=== PATIENT | male | born 1930 | race Caucasian/White ===

== ENCOUNTER 2018-11-30 20:35 | Inpatient (IN) | payer MEDICARE ==
[2018-11-30 22:31] LABS: CKMB 1.2 ng/mL (0-6.6)
[2018-11-30 22:44] VITALS: BMI 26.1
[2018-12-01] MEDS ORDERED: Nitroglycerin 0.4 MG TAB (25 Tab Bottle) PO PRN (07:51)
[2018-12-01] MEDS ORDERED: Magnesium 2 GM/50 ML 2 GM in Premix Bag 1 BAG IVPB SCH (08:15)
[2018-12-01 08:47] LABS: CKMB 1.1 ng/mL (0-6.6)
[2018-12-01 08:53] LABS: Cardiac Risk 2.2 (Less than 4.5)
[2018-12-01] MEDS ORDERED: Aspirin Chewable 81 MG TAB PO SCH (09:00)
[2018-12-01] MEDS ORDERED: Sodium Chloride 0.9% 1,000 ML IV SCH (11:15)
[2018-12-01] MEDS ORDERED: Communication Order-Pharmacy FS SCH (11:15)
--- NOTE | 2018-12-01 11:52 | CON ---
DATE OF CONSULTATION: 12/01/2018 REASON FOR CONSULTATION: Chest pain, indeterminate troponin, episode of nonsustained ventricular tachycardia. HISTORY OF PRESENT ILLNESS: Mr. Packer is a very pleasant 88-year-old gentleman. He had an episode of substernal pain yesterday. He initially thought it was indigestion, took medicine for indigestion, but did not resolve. Therefore, he went to the emergency room. He was found to have frequent PVCs, one episode of nonsustained ventricular tachycardia. He was transferred here. He has not had any further chest pain. He said about a month or two ago he had a similar episode of pain, but was not as severe. The patient remains moderately active. He is currently living on his family members land in [place], moderately active without angina. PAST MEDICAL HISTORY: He has a history of coronary artery disease and underwent stent implantation in the right coronary artery in 1998. The patient at that time had a 3.5 mm x 25 mm near ELLEN stent placed deployed to 12 atmospheres and post dilated to 15 atmospheres. He also had some distal disease in the right coronary artery and a 60% lesion after the posterior descending artery. The LAD, left main, and circumflex were free of any obstructive stenosis. At the base of the inferior wall, it was akinetic. The ejection fraction was 65%. MEDICATIONS: 1. He takes aspirin. 2. He is not taking any statin. He says he does not remember being on statins. 3. Previously, he is on blood pressure medicine, but "it maybe goofy, so I quit a couple weeks ago,". ALLERGIES: NONE KNOWN. MEDICATION IS OUTLINED ABOVE. REPORTS ASPIRIN AND OMEPRAZOLE. REVIEW OF SYSTEMS: CONSTITUTIONAL: No significant weight gain or loss. VISION: No changes. HEARING: No changes. PULMONARY: No cough or wheezing. GASTROINTESTINAL: No nausea, vomiting, or diarrhea. SKIN: No rashes. NEUROLOGIC: No unilateral weakness or numbness. PSYCHIATRIC: No unusual depression or anxiety. HEMATOLOGIC: No unusual bruising. GENITOURINARY: No burning with urination. PHYSICAL EXAMINATION: GENERAL: This is a pleasant gentleman, in no distress. VITAL SIGNS: Blood pressure 149/91 and pulse 74 and regular. LUNGS: Clear. CARDIAC: Normal S1 and normal S2. ABDOMEN: Soft and nontender. EXTREMITIES: No clubbing or cyanosis. No edema. He has good dorsalis pedis pulses bilaterally. SKIN: Warm and dry. PSYCHIATRIC: Mood and affect normal. NEUROLOGIC: Grossly normal. LABORATORY DATA: EKG, no acute changes, but he did have one episode of nonsustained ventricular tachycardia. Troponin level 0.054 indeterminate. LDL cholesterol 63. The patient does chew tobacco. ASSESSMENT: 1. Acute coronary syndrome. 2. Previous stent implantation 20 years ago. 3. Chews tobacco. 4. Hypertension. 5. Nonsustained ventricular tachycardia, 24 beats. PLAN: 1. Aspirin. 2. Proceed to repeat cardiac catheterization. Discussed risk of stroke, heart attack, iodine allergy, loss of blood supply to leg or kidney, stent thrombosis, and stent restenosis. The patient understands and wished to proceed. He may have the extensive disease now 20 years out from his previous intervention. Job ID: [id number]
[2018-12-01] MEDS ORDERED: Lidocaine 1% (PF) 30 ML VIAL ONE (15:17)
[2018-12-01] MEDS ORDERED: Fentanyl 100 MCG/2 ML VIAL ONE (15:38)
[2018-12-01] MEDS ORDERED: Midazolam HCl 2 mg/2 ml Vial ONE (15:39)
[2018-12-01] MEDS ORDERED: Nitroglycerin 100MG/250ML BOT 250 ML ONE (15:58)
[2018-12-01] MEDS ORDERED: Sodium Chloride 0.9% 200 ML IV PRN (16:40)
[2018-12-01] MEDS ORDERED: Nitroglycerin 0.4 MG TAB (25 Tab Bottle) SL PRN (16:40)
[2018-12-01] MEDS ORDERED: Acetaminophen/Codeine 30-300mg Tablet PO PRN (16:40)
--- NOTE | 2018-12-01 17:06 | HP ---
TIME OF EVALUATION: 7:30 a.m. CHIEF COMPLAINT: Chest pain. HISTORY OF PRESENT ILLNESS: Mr. Packer is an 88-year-old male with past medical history significant for coronary artery disease, status post remote stenting of the RCA many years ago with Dr. Tello, with no followup since; hypertension; and Snus tobacco abuse, who presented to the [facility] ER in [place] with complaints of chest discomfort. The patient states that prior to his episode of chest pain, he was eating a piece of fried chicken, and shortly thereafter, began experiencing some discomfort that he described as "indigestion like." He denied any associated nausea, diaphoresis, or palpitations. He did take several [id number] Tagamet, along with an extra Prilosec, and had no relief of his symptoms. He did take a sublingual nitroglycerin, which did start to ease off his pain. On arrival to the ER in [place], he was given a second sublingual nitroglycerin, which did relieve his pain. Workup at that facility included an EKG, which showed no acute ST or T-wave changes, but did show frequent PVCs. At that facility, he did have a short run of nonsustained ventricular tachycardia. His troponin was indeterminate. He was transferred to our facility for higher level of care, and evaluation by Dr. Tello, who is the patient's primary die tester when the stent was placed, however, he has not had any followup or stress test since that time as mentioned. Since his arrival, he has had no further chest discomfort. He has been resting comfortably. He has no complaints at this time. REVIEW OF SYSTEMS: A 12-point review of systems performed and is negative except that stated above. The patient states specifically that he has had no recent illnesses, cough, fever, or chills. He has had no blood in his urine or stool. 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 ALLERGIES: NO KNOWN DRUG ALLERGIES. HOME MEDICATIONS: At this point, the patient is only taking, 1. Baby aspirin 81 mg daily. 2. Prilosec 10 mg daily. Review of records from [place] and the patient's primary PCP, Dr. Roy, does show that the patient was previously on, 1. Amlodipine 5 mg daily. 2. Finasteride 5 mg daily. 3. Ibuprofen 200 mg p.r.n. 4. Tamsulosin 0.4 mg daily. 5. Tramadol 50 mg p.r.n. 6. Trazodone 50 mg q.h.s. PAST MEDICAL HISTORY: Coronary artery disease, hypertension, BPH. PAST SURGICAL HISTORY: Includes stent placement to the RCA by Dr. Tello, and appendectomy. SOCIAL HISTORY: The patient has used dip tobacco for many years. He does not smoke cigarettes. No illicit drug use. Drinks alcohol occasionally. He lives on some land near his daughter and many grandchildren. He does stay active on the land and is very functional and performs all of his own ADLs. CODE STATUS: The patient is a full code. PHYSICAL EXAMINATION: VITAL SIGNS: Blood pressure 141/91, pulse 74, O2 saturation is 98% on room air, temperature 97.4. GENERAL: The patient is a well-appearing elderly male, in no acute distress. HEENT: Head is atraumatic and normocephalic. Mucous membranes are moist. NECK: Supple. No lymphadenopathy. Trachea is midline. No JVD. CV: S1 and S2. Regular rate and rhythm. No appreciable murmurs, rubs, or gallops. LUNGS: Regular respiratory rate and pattern. Overall clear to auscultation bilaterally. ABDOMEN: Soft. Positive bowel sounds. Nontender. No masses. EXTREMITIES: No edema. Lower extremities are warm and well perfused. SKIN: Warm and dry. No rashes or lesions present. NEUROLOGIC: Alert and oriented x3. Nonfocal. Cranial nerves 2 through 12 grossly intact. LABORATORY DATA: Reviewed from [facility]. Creatinine 0.94, BUN 11, sodium 139, potassium 4.0, calcium 9.5, CO2 of 23. Troponin 0.02, 0.054 respectively. Magnesium 1.5. Hemoglobin and hematocrit of 15/44.6, platelets are 254. ASSESSMENT: 1. Unstable angina. 2. Nonsustained ventricular tachycardia, concerning for ischemic-mediated in the setting of chest pain, known disease, and indeterminate troponin. 3. Coronary artery disease, status post remote stenting of the right coronary artery, approximately 15 to 20 years ago. 4. Hypertension. 5. Mild hypomagnesemia. 6. Tobacco abuse/chewing tobacco. PLAN: Dr. Tello of Cardiology has been consulted and plan is for left heart catheterization later today. We will replete the patient's magnesium. The patient did receive heparin at the [facility] ER, we will continue aspirin. The patient has not been on statin. We will await findings of left heart catheterization. Appreciate Cardiology consult and recommendations. Further recommendations based on hospital course. Job ID: [id number]
[2018-12-01] MEDS: Amlodipine 5 MG TAB PO SCH (17:40)
[2018-12-01] MEDS ORDERED: Amlodipine 5 MG TAB PO SCH (17:45)
[2018-12-01] MEDS ORDERED: Iopamidol 370 76% 100 ML VIAL ONE (20:13)
[2018-12-01] MEDS ORDERED: Atorvastatin Calcium 20 MG TAB PO SCH (21:00)
--- NOTE | 2018-12-02 00:46 | CON ---
DATE OF CONSULTATION: HISTORY OF PRESENT ILLNESS: Adam Packer is an 88-year-old gentleman with remote history of right coronary artery stenting [place] [address] Tello. He has not had any medical followup to speak of over the years, but presented with chest pain this morning. He had a slight bump in his troponin I and cardiac catheterization demonstrated serial severe right coronary artery lesions as well as a 70% stenosis in OM and a fairly normal-appearing LAD diagonal system. He had some inferior akinesis, but overall the ejection fraction was not too bad. PAST MEDICAL HISTORY: Positive for hypertension, however, he stopped taking his medicines. He does take an aspirin a day. Other medications, he does not take regularly. Past medical history includes some prostatic hypertrophy. PAST SURGICAL HISTORY: Negative, although the chart said he had an appendectomy. The patient actually states he has never had surgery. SOCIAL HISTORY: He does not smoke, but does dip. He lives in an next door to his daughter and remains fairly active and drinks beer on a daily basis. REVIEW OF SYSTEMS: He denies nocturia, constipation, or diarrhea. He has had no previous stroke. He denies dyspnea. PHYSICAL EXAMINATION: GENERAL: He is alert, cooperative gentleman, appearing his stated age. VITAL SIGNS: Height 5 feet 9 inches, weight 176 pounds. Blood pressure is , heart rate 68. NECK: Limited range of motion of his neck. No carotid bruits. LUNGS: Clear to auscultation. CARDIAC: Bradycardia. No murmurs. ABDOMEN: Soft and nontender. No aneurysm. EXTREMITIES: Palpable femoral and posterior tibial pulses bilaterally. I have gone over the possibility of coronary artery bypass grafting to the right acute marginal/PDA and distal right coronary artery as well as an OM. At this time, the patient is not interested in any intervention and we have discussed medical management, and his daughter is hesitant to allow him to take statins because she knows someone who had some muscle weakness from statins. In any event, I will stop by tomorrow and see if he has had any further questions or change of attitude concerning surgery. Job ID: [id number]
[2018-12-02] MEDS: Amlodipine 5 MG TAB PO SCH (08:15)
[2018-12-02] MEDS ORDERED: Aspirin 81 mg Enteric Coated Tablet PO SCH (09:00)
[2018-12-02] MEDS ORDERED: Carvedilol 3.125 MG TAB PO SCH ×2 (09:30→17:00)
--- NOTE | 2018-12-02 11:31 | PDOC.PN ---
- Subjective Encounter Start Date: 12/02/18 Encounter Start Time: 11:29 Mr Packer was seen today in follow-up of Unstable angina, and non-sustained VT. He does no have any complaints this morning. He has thought about Bypass surgery overnight, and does not want this. - Objective Resuscitation Status - Order Detail: 12/01/18 07:51 Resuscitation Status Routine Co-Sign Provider: Resuscitation Status: FULL: Full Resuscitation Discussed with: patient MAR Reviewed: Yes Vital Signs & Weight: Vital Signs (12 hours) Temp Pulse Resp BP Pulse Ox 12/02/18 08:00 97.6 F 72 16 187/84 H 96 12/02/18 03:15 98.4 F 62 18 178/80 H 95 Weight Weight 176 lb 12.8 oz I&O: 12/01/18 12/02/18 12/03/18 06:59 06:59 06:59 Intake Total 300 840 Output Total 450 Balance 300 390 Phys Exam - Physical Examination HEENT: PERRLA Respiratory: no wheezing, no rales, no rhonchi, clear to auscultation bilateral Cardiovascular: RRR, no significant murmur, no rub Gastrointestinal: soft, non-tender, no distention, positive bowel sounds Musculoskeletal: no edema, pulses present Dx/Plan (1) Unstable angina Status: Acute (2) Dyslipidemia Code(s): E78.5 - HYPERLIPIDEMIA, UNSPECIFIED Status: Chronic (3) Coronary artery disease Code(s): I25.10 - ATHSCL HEART DISEASE OF [place] CORONARY ARTERY W/O ANG PCTRS Status: Chronic (4) Hypertension Code(s): I10 - ESSENTIAL (PRIMARY) HYPERTENSION Status: Chronic - Plan * Unstable Angina- clinically stable- his symptoms have improved * He has declined CABG * He will be treated medically, and he is stable for discharge home.
[2018-12-02 12:32] VITALS: BP 141/69; TEMP 98.2
--- NOTE | 2018-12-02 15:14 | EKG ---
Test Reason : Blood Pressure : / mmHG Vent. Rate : 089 BPM Atrial Rate : 089 BPM P-R Int : 182 ms QRS Dur : 094 ms QT Int : 364 ms P-R-T Axes : 054 -13 011 degrees QTc Int : 442 ms Sinus rhythm with Premature supraventricular complexes Inferior infarct , age undetermined Possible Anterior infarct , age undetermined Abnormal ECG Confirmed by MONE PEARSON ([id number]), restaurant expeditor DONNY GARCIA ([id number]) on 12/02/2018 3:14:04 PM Referred By: Confirmed By:MONE PEARSON
--- NOTE | 2018-12-02 18:32 | PDOC.CTH ---
Cardiology Progress Note - Subjective The pt seen and examined. No overnight events. No cardiac complaints. - Objective Vital Signs Temp Pulse Resp BP Pulse Ox 12/02/18 12:00 98.2 F 70 12 141/69 H 95 12/02/18 08:00 97.6 F 72 16 187/84 H 96 Weight 176 lb 12.8 oz 12/01/18 12/02/18 12/03/18 06:59 06:59 06:59 Intake Total 300 840 240 Output Total 450 Balance 300 390 240 - Physical Examination General/Neuro: alert & oriented x3 Neck: no JVD present Lungs: CTA Heart: RRR Abdomen: soft Extremities: other: (No edema) - Telemetry Telemetry Rhythm: SR - Labs Troponin/CKMB CK-MB (CK-2) 1.1 ng/mL (0-6.6) 12/01/18 07:50 Troponin I 0.045 ng/mL (< 0.028) H 12/01/18 07:50 - Assessment/Plan 1. Unstable angina - s/p LHC with 70% stenosis in OM with inferior akinesis; the pt refused to undergo CABG and willing to cont medical management; the pt's daughter refused statin 2. CAD with hx of stent in RCA in 1998 - 3. HTN - 4. S/p 15 beats of SVT - asymptomatic; will start Coreg 3.125mg BID; Discussed with the pt and family about SVT and the benefit and side effect of BBlocker. MAR reviewed * The pt will f/u with Dr Tello's office within 2 wks. Review of Systems - Review of Systems Constitutional: reports: no symptoms reported EENTM: reports: no symptoms reported Respiratory: reports: no symptoms reported Cardiac (ROS): reports: no symptoms reported ABD/GI: reports: no symptoms reported : reports: no symptoms reported Musculoskeletal: reports: no symptoms reported
--- NOTE | 2018-12-02 20:24 | DIS ---
DATE OF ADMISSION: 12/01/2018 DATE OF DISCHARGE: 12/02/2018 PRIMARY CARE PHYSICIAN: Dr. Nayak. DISCHARGE DISPOSITION: Home. PRIMARY DISCHARGE DIAGNOSES: 1. Unstable angina. 2. Coronary artery disease. 3. Hypertension. 4. Dyslipidemia. DISCHARGE MEDICATIONS: 1. Carvedilol 3.125 mg twice daily. 2. Lipitor 20 mg at bedtime. 3. Norvasc 5 mg daily. 4. Omeprazole 10 mg daily. 5. Aspirin 81 mg daily. PROCEDURES DONE DURING THE ADMISSION: The patient had a cardiac catheterization and this revealed severe right coronary artery lesion as well as a 70% stenosis in OM and there was some inferior akinesis. HOSPITAL COURSE: Mr. Packer is a pleasant 88-year-old gentleman, who presented to the emergency room with complaints of chest pain. He went to the emergency room in [place] and then was transferred to our hospital. There were concerns due to some frequent PVCs and some nonsustained ventricular tachycardia that he experienced. He was seen by Cardiology and underwent cardiac catheterization. He was found to have significant 2-vessel coronary artery disease. CV Surgery was consulted and the patient declined to have CABG and opted for medical management. He was placed on Lipitor as well as carvedilol for the coronary artery disease. His blood pressure was found to be poorly controlled and amlodipine was also added to his regimen. He will follow up with his primary care physician as well as Cardiology as instructed. Job ID: [id number]
== END 2018-12-02 14:08 | disposition home or self-care (01) | DRG 287 ==
LOC: ERS 20:35 → 2SW 21:24 → OBSVTOIN 12-01 15:42
PROVIDERS: ADMIT Hospitalist; ATTEND Hospitalist
PROC: 4A023N7 Measurement of Cardiac Sampling and Pressure, Left Heart, Percutaneous Approach (ICD-10-PCS; principal; 2018-12-01)
PROC: B2111ZZ Fluoroscopy of Multiple Coronary Arteries using Low Osmolar Contrast (ICD-10-PCS; 2018-12-01)
PROC: B2151ZZ Fluoroscopy of Left Heart using Low Osmolar Contrast (ICD-10-PCS; 2018-12-01)
DX: I25.110 Atherosclerotic heart disease of native coronary artery with unstable angina pectoris (principal); I47.2 Ventricular tachycardia; I10 Essential (primary) hypertension; N40.0 Benign prostatic hyperplasia without lower urinary tract symptoms; E83.42 Hypomagnesemia; F17.220 Nicotine dependence, chewing tobacco, uncomplicated; E78.5 Hyperlipidemia, unspecified; Z95.5 Presence of coronary angioplasty implant and graft; Z79.82 Long term (current) use of aspirin; Z79.899 Other long term (current) drug therapy; Z90.49 Acquired absence of other specified parts of digestive tract
CPT/HCPCS: 36415; 76942; 80061; 82553; 84484; 93005; 93458; 94760; 99152; 99153; C1769; J1644; J2001; J2250; J3010; J3475; Q9967